=== PATIENT | female | born 1955 | race Caucasian/White ===

== ENCOUNTER 2021-08-17 12:20 | Inpatient (IN) | payer MEDICARE, SELFPAY ==
[2021-08-17] MEDS ORDERED: Acetaminophen 325 MG TAB PO PRN (14:48)
[2021-08-17] MEDS ORDERED: HYDROcodone/Acetaminophen 5/325 mg Tablet PO PRN ×2 (14:48)
[2021-08-17] MEDS ORDERED: Ondansetron ODT 4 MG TAB PO PRN (14:48)
[2021-08-17] MEDS ORDERED: Acetaminophen 650 MG Suppository PR PRN (14:48)
[2021-08-17] MEDS ORDERED: Ketorolac Tromethamine 30 MG/ML VIAL IVP PRN (14:54)
[2021-08-17 15:52] LABS: ALT (SGPT) 3039 U/L (8-55); Albumin 3.6 g/dL (3.4-4.8); Alkaline Phosphatase 157 U/L (40-110); Anion Gap 12 mmol/L (10-20); BUN (Urea Nitrogen) 23 mg/dL (9.8-20.1); Calc. Creatinine Clearance 0 mL/min (70-130); Calcium 8.6 mg/dL (7.8-10.44); Carbon Dioxide 22 mmol/L (23-31); Chloride 110 mmol/L (98-107); Globulin 2.1 g/dL (2.4-3.5); Glucose 98 mg/dL (80-115); Potassium 3.6 mmol/L (3.5-5.1); Protein, Total 5.7 g/dL (5.8-8.1); Sodium 140 mmol/L (136-145)
[2021-08-17] MEDS ORDERED: Morphine 4 MG/ML VIAL SLOW IVP PRN (16:00)
[2021-08-17 16:10] LABS: AST (SGOT) Greater than 3500 U/L (5-34)
[2021-08-17] MEDS ORDERED: Gabapentin 300 MG CAP PO PRN (16:15)
[2021-08-17] MEDS ORDERED: HYDROcodone/Acetaminophen 10/325 mg Tablet PO PRN (16:21)
[2021-08-17] MEDS ORDERED: SUMAtriptan Succinate 6 MG/0.5 ML VIAL SC PRN (16:28)
[2021-08-17] MEDS ORDERED: Ketorolac Tromethamine 30 MG/ML VIAL IVP SCH (16:30)
[2021-08-17] MEDS ORDERED: Bisacodyl 10 MG SUPP PR PRN (16:30)
[2021-08-17] MEDS ORDERED: Bisacodyl 5 MG TAB PO PRN (16:30)
[2021-08-17] MEDS ORDERED: ALPRAZolam 0.25 MG TAB PO PRN (16:35)
[2021-08-17] MEDS: Ondansetron PF 4 MG/2 ML Vial IVP PRN (17:03)
[2021-08-17] MEDS ORDERED: Morphine 4 MG/ML VIAL ONE (17:08)
[2021-08-17 17:22] LABS: Hemoglobin 12.3 g/dL (12.0-16.0); Mean Corpuscular HGB CONC 33.7 g/dL (32.0-36.0); Platelet Count 90 thou/uL (130-400); RBC Distribution Width 11.9 % (11.5-14.5); Red Blood Cell (RBC) Count 3.62 mill/uL (4.20-5.40); White Blood Cell (WBC) Count 0.9 thou/uL (4.8-10.8)
[2021-08-17 17:25] LABS: INR-International Normal Ratio 1.3; Prothrombin Time 16.6 sec (12.0-14.7)
[2021-08-17 17:32] LABS: ALT (SGPT) 3799 U/L (8-55); Acetaminophen Less than 6.0 mcg/mL (10.0-30.0); Albumin 3.6 g/dL (3.4-4.8); Alkaline Phosphatase 165 U/L (40-110); Bilirubin, Direct 0.7 mg/dL (0.1-0.3); Bilirubin, Total 1.1 mg/dL (0.2-1.2)
[2021-08-17 17:40] LABS: AST (SGOT) Greater than 3500 U/L (5-34)
[2021-08-17 17:40] LABS: Band 36 % (5-11); Lymphocytes 16 % (21-51); MDiff Complete? YES; Macrocytosis SLIGHT = 6-15 cells (100X) (0-5/hpf); Mean Platelet Volume 9.2 fL (7.4-10.4); Monocytes 2 % (0-10); Neutrophil 40 % (42-75); Platelet Morphology Comment Appears Decreased; Reactive Lymphocytes 6 % (0-10); Reflex for Review?? YES
[2021-08-17 17:52] LABS: Free T4 (Free Thyroxine) 1.11 ng/dL (0.70-1.48)
[2021-08-17 17:53] LABS: Thyroid Stimulating Hormone 0.0405 uIU/mL (0.35-4.94)
[2021-08-17 18:06] LABS: HBCM Index 0.07 S/CO (0-0.79); HBSAg Index 0.25 S/CO (0-0.99); Hep A IgM AB Non-Reactive (NonReactive); Hep A IgM S/CO 0.08 S/CO (0-0.79); Hep B Surf Ag Non-Reactive S/CO (NonReactive); Hep C IgG Ab Non-Reactive (NonReactive); Hep C Index 0.08 S/CO (0-0.79); Hepatitis B Core IgM Abs Non-Reactive (NonReactive)
[2021-08-17] MEDS ORDERED: Piperacillin/Tazobactam 3.375 GM in Sodium Chloride 0.9% 100 ML IVPB SCH (19:15)
[2021-08-17 19:27] VITALS: BMI 23.6
[2021-08-17] MEDS: buPROPion 75 MG TAB PO SCH (19:56)
[2021-08-17] MEDS: Topiramate 100 MG TAB PO SCH (19:57)
[2021-08-17] MEDS: DULoxetine 30 MG CAP PO SCH (19:57)
[2021-08-17] MEDS: Famotidine/PF 20 mg/2ml Vial SLOW IVP SCH (19:59)
[2021-08-17] MEDS: Verapamil 120 MG TAB PO SCH (19:59)
[2021-08-17] MEDS: Pantoprazole 40 MG VIAL IVP SCH (19:59)
[2021-08-17 20:08] LABS: HIV (1/2) Antibody/Antigen NonReactive (NonReactive); HIV 1/2 INDEX 0.13 S/CO (<1.00)
[2021-08-17] MEDS: Lactated Ringer's 1,000 ML IV SCH (20:09)
[2021-08-17 20:30] LABS: Bacteria/HPF 4+ HPF (None Seen); Bilirubin Negative (Negative); Blood, Urine 2+ (Negative); Clarity Turbid (Clear); Glucose, Urine (Dipstick) Normal (Negative); Ketone, Urine Negative (Negative); Leukocyte Negative Leu/uL (Negative); Nitrite 1+ (Negative); Protein, Urine (Dipstick) 70 mg/dL (Neg-Trace); Specific Gravity, Urine 1.031 (1.002-1.036); Squamous Epithelial 0-3 HPF (0-3); Urobilinogen Normal mg/dL (Less than 2)
[2021-08-17] MEDS ORDERED: Sodium Chloride 0.9% 1,000 ML IV SCH ×3 (21:00→23:45)
[2021-08-17] MEDS ORDERED: Famotidine 20 MG TAB PO SCH (21:00)
[2021-08-17 21:31] LABS: Amphetamine Not Detected (NotDetected); Barbiturates Screen Not Detected (NotDetected); Benzodiazepine Screen Detected (NotDetected); Cocaine Metabolite Screen Not Detected (NotDetected); Methadone Not Detected (NotDetected); Methamphetamine Not Detected (NotDetected); Opiate Screen Detected (NotDetected); Oxycodone Screen Not Detected (NotDetected); Phencyclidine (PCP) Not Detected (NotDetected); THC/Cannabinoid Screen Detected (NotDetected); Tricyclic Screen Not Detected (NotDetected)
[2021-08-17 22:33] LABS: Lactic Acid 3.3 mmol/L (0.5-2.2)
[2021-08-17 22:41] LABS: Chloride 109 mmol/L (98-107); Potassium 3.8 mmol/L (3.5-5.1); Sodium 134 mmol/L (136-145)
[2021-08-17 22:43] LABS: Albumin 3.1 g/dL (3.4-4.8)
[2021-08-17 22:46] LABS: Globulin 1.7 g/dL (2.4-3.5); Glucose 123 mg/dL (80-115); Protein, Total 4.8 g/dL (5.8-8.1)
[2021-08-17 22:47] LABS: Bilirubin, Total 0.8 mg/dL (0.2-1.2); Carbon Dioxide 21 mmol/L (23-31)
[2021-08-17 22:48] LABS: Alkaline Phosphatase 133 U/L (40-110)
[2021-08-17 22:49] LABS: Calc. Creatinine Clearance 34 mL/min (70-130)
[2021-08-17 22:50] LABS: BUN (Urea Nitrogen) 23 mg/dL (9.8-20.1)
[2021-08-17 22:51] LABS: ALT (SGPT) 3726 U/L (8-55)
[2021-08-17] MEDS: Ketorolac Tromethamine 30 MG/ML VIAL IVP SCH (22:52)
[2021-08-17 22:53] LABS: Band 19 % (5-11); Eosinophils 3 % (0-10); Hemoglobin 10.6 g/dL (12.0-16.0); Lymphocytes 12 % (21-51); MDiff Complete? YES; Mean Corpuscular HGB CONC 33.6 g/dL (32.0-36.0); Mean Platelet Volume 9.2 fL (7.4-10.4); Monocytes 3 % (0-10); Neutrophil 63 % (42-75); Platelet Count 82 thou/uL (130-400); Platelet Morphology Comment Appears Decreased; RBC Distribution Width 11.9 % (11.5-14.5); Red Blood Cell (RBC) Count 3.12 mill/uL (4.20-5.40); White Blood Cell (WBC) Count 5.4 thou/uL (4.8-10.8)
[2021-08-17 22:55] LABS: Anion Gap 8 mmol/L (10-20)
[2021-08-17] MEDS: Piperacillin/Tazobactam 3.375 GM in Sodium Chloride 0.9% 100 ML IVPB SCH (22:59)
[2021-08-17 23:01] LABS: AST (SGOT) Greater than 3500 U/L (5-34)
[2021-08-18] MEDS ORDERED: Vancomycin 1.5 GRAM/300 ML BAG 1.5 GM in Premix Bag 1 BAG IVPB SCH (01:14)
[2021-08-18] MEDS ORDERED: Vancomycin HCl 1.25 GM in Sodium Chloride 0.9% 250 ML 250 ML IVPB SCH (01:45)
[2021-08-18] MEDS ORDERED: Norepinephrine 8 MG/0.9% NS 250 ML IVPB SCH (01:45)
[2021-08-18] MEDS: Norepinephrine 8 MG in Dextrose 5% in Water 242 ML IVPB PRN ×2 (02:31→19:14)
[2021-08-18 03:50] LABS: ALT (SGPT) 3253 U/L (8-55); Albumin 2.9 g/dL (3.4-4.8); Alkaline Phosphatase 135 U/L (40-110); Anion Gap 16 mmol/L (10-20); BUN (Urea Nitrogen) 24 mg/dL (9.8-20.1); Bilirubin, Total 1.1 mg/dL (0.2-1.2); Calc. Creatinine Clearance 32 mL/min (70-130); Calcium 7.8 mg/dL (7.8-10.44); Carbon Dioxide 17 mmol/L (23-31); Chloride 110 mmol/L (98-107); Globulin 2.1 g/dL (2.4-3.5); Glucose 95 mg/dL (80-115); Potassium 3.5 mmol/L (3.5-5.1); Sodium 139 mmol/L (136-145)
[2021-08-18 03:53] LABS: AST (SGOT) Greater than 3500 U/L (5-34)
[2021-08-18 04:10] LABS: INR-International Normal Ratio 1.3; PTT 42.4 sec (22.9-36.1); Prothrombin Time 16.4 sec (12.0-14.7)
[2021-08-18 04:38] LABS: Band 27 % (5-11); Eosinophils 2 % (0-10); Hemoglobin 10.5 g/dL (12.0-16.0); Lymphocytes 10 % (21-51); MDiff Complete? YES; Mean Corpuscular HGB CONC 33.5 g/dL (32.0-36.0); Mean Corpuscular Hemoglobin 34.1 pg (27.0-31.0); Mean Platelet Volume 9.6 fL (7.4-10.4); Metamyelocyte 1 % (0-0); Neutrophil 59 % (42-75); Platelet Count 69 thou/uL (130-400); Platelet Morphology Comment Appears Decreased; RBC Distribution Width 12.1 % (11.5-14.5); Red Blood Cell (RBC) Count 3.08 mill/uL (4.20-5.40); White Blood Cell (WBC) Count 7.3 thou/uL (4.8-10.8)
[2021-08-18] MEDS: Lactated Ringer's 1,000 ML IV SCH ×3 (04:46→22:55)
[2021-08-18] MEDS: Ketorolac Tromethamine 30 MG/ML VIAL IVP SCH (04:51)
[2021-08-18 06:32] LABS: Lactic Acid 2.1 mmol/L (0.5-2.2)
[2021-08-18] MEDS ORDERED: Iothalamate Meglumine 60% 50 ML VIAL FS ONE (07:33)
[2021-08-18] MEDS ORDERED: Fentanyl 100 MCG/2 ML VIAL ONE (07:37)
[2021-08-18] MEDS: Piperacillin/Tazobactam 3.375 GM in Sodium Chloride 0.9% 100 ML IVPB SCH ×3 (08:07→23:17)
[2021-08-18] MEDS: Pantoprazole 40 MG VIAL IVP SCH ×2 (08:08→22:37)
[2021-08-18] MEDS: Famotidine/PF 20 mg/2ml Vial SLOW IVP SCH ×2 (08:08→22:34)
[2021-08-18] MEDS ORDERED: Ketamine 50 MG/ML (10ML VIAL) ONE (08:19)
[2021-08-18] MEDS ORDERED: Dexamethasone 20 MG/5 ML VIAL ONE (08:33)
[2021-08-18] MEDS ORDERED: Lidocaine 1% PF 5 ML VIAL ONE (08:33)
[2021-08-18] MEDS ORDERED: Ondansetron PF 4 MG/2 ML Vial ONE (08:33)
[2021-08-18] MEDS ORDERED: Ioversol 68 % 50 ML VIAL ONE (08:51)
[2021-08-18] MEDS ORDERED: Enoxaparin Sodium 40 MG/0.4 ML SYRINGE SC SCH (09:00)
[2021-08-18 10:23] LABS: Bilirubin Negative (Negative); Blood, Urine 3+ (Negative); Clarity Extra Turbid (Clear); Glucose, Urine (Dipstick) Normal (Negative); Ketone, Urine Negative (Negative); Leukocyte 250 Leu/uL (Negative); Nitrite Negative (Negative); Protein, Urine (Dipstick) 100 mg/dL (Neg-Trace); RBC/HPF Greater than 50 HPF (0-3); Squamous Epithelial 0-3 HPF (0-3); Urobilinogen Normal mg/dL (Less than 2)
[2021-08-18 10:24] LABS: Bacteria/HPF 1+ HPF (None Seen); Specific Gravity, Urine 1.057 (1.002-1.036)
[2021-08-18] MEDS: buPROPion 75 MG TAB PO SCH ×2 (11:52→22:35)
[2021-08-18] MEDS: Tamsulosin HCl 0.4 MG CAP PO SCH (11:52)
[2021-08-18] MEDS: Topiramate 100 MG TAB PO SCH ×2 (11:52→22:36)
[2021-08-18] MEDS: DULoxetine 30 MG CAP PO SCH ×3 (11:53→22:37)
[2021-08-18] MEDS: Verapamil 120 MG TAB PO SCH ×2 (11:53→22:34)
[2021-08-18] MEDS: Polyethylene Glycol 3350 17 GM Packet PO SCH (11:53)
[2021-08-18] MEDS: Ondansetron PF 4 MG/2 ML Vial IVP PRN (16:08)
[2021-08-18] MEDS: Morphine 4 MG/ML VIAL SLOW IVP PRN (19:18)
[2021-08-19] MEDS ORDERED: Vancomycin HCl 500 MG in Sodium Chloride 0.9% 100 ML IVPB SCH (02:00)
[2021-08-19] MEDS: Levothyroxine Sodium 100 MCG TAB PO SCH (05:35)
[2021-08-19 06:19] LABS: ALT (SGPT) 2013 U/L (8-55); AST (SGOT) 1060 U/L (5-34); Albumin 2.8 g/dL (3.4-4.8); Alkaline Phosphatase 113 U/L (40-110); Anion Gap 13 mmol/L (10-20); BUN (Urea Nitrogen) 38 mg/dL (9.8-20.1); Bilirubin, Total 1.3 mg/dL (0.2-1.2); Calc. Creatinine Clearance 32 mL/min (70-130); Calcium 7.9 mg/dL (7.8-10.44); Carbon Dioxide 20 mmol/L (23-31); Chloride 110 mmol/L (98-107); Globulin 1.8 g/dL (2.4-3.5); Glucose 97 mg/dL (80-115); Potassium 3.4 mmol/L (3.5-5.1); Protein, Total 4.6 g/dL (5.8-8.1); Sodium 140 mmol/L (136-145)
[2021-08-19] MEDS: Lactated Ringer's 1,000 ML IV SCH ×3 (08:35→20:19)
[2021-08-19] MEDS: Piperacillin/Tazobactam 3.375 GM in Sodium Chloride 0.9% 100 ML IVPB SCH ×2 (08:36→14:50)
[2021-08-19] MEDS: Famotidine/PF 20 mg/2ml Vial SLOW IVP SCH (08:37)
[2021-08-19] MEDS: Topiramate 100 MG TAB PO SCH ×2 (08:37→20:19)
[2021-08-19] MEDS: DULoxetine 30 MG CAP PO SCH (08:37)
[2021-08-19] MEDS: Verapamil 120 MG TAB PO SCH (08:37)
[2021-08-19] MEDS: Atorvastatin Calcium 20 MG TAB PO SCH (08:37)
[2021-08-19] MEDS: Tamsulosin HCl 0.4 MG CAP PO SCH (08:38)
[2021-08-19] MEDS: buPROPion 75 MG TAB PO SCH ×2 (08:38→20:40)
[2021-08-19] MEDS: Pantoprazole 40 MG VIAL IVP SCH (08:38)
[2021-08-19] MEDS: Polyethylene Glycol 3350 17 GM Packet PO SCH (08:39)
[2021-08-19] MEDS ORDERED: Electrolyte Replacement Protocol 1 EACH FS PRN (09:30)
[2021-08-19] MEDS ORDERED: Potassium Chloride 20 MEQ TAB PO SCH (11:00)
[2021-08-19 12:12] LABS: Magnesium 1.6 mg/dL (1.6-2.6); Phosphorus 2.9 mg/dL (2.3-4.7)
[2021-08-19] MEDS ORDERED: Magnesium 2 GM/50 ML 2 GM in Premix Bag 1 BAG IVPB SCH (14:00)
[2021-08-19] MEDS ORDERED: Polyethylene Glycol 3350 17 GM Packet PO PRN (14:24)
[2021-08-19] MEDS ORDERED: Albumin 5% 0 ML ONE (14:45)
[2021-08-19] MEDS: Albumin 25% 25 GM/100 ML BOT IVPB SCH ×2 (15:07→22:32)
[2021-08-19] MEDS: Docusate 100 MG CAP PO SCH (20:20)
[2021-08-19] MEDS ORDERED: SUMAtriptan Succinate 50 MG TAB PO PRN (22:33)
[2021-08-19] MEDS: Morphine 4 MG/ML VIAL SLOW IVP PRN (22:46)
[2021-08-20] MEDS: Piperacillin/Tazobactam 3.375 GM in Sodium Chloride 0.9% 100 ML IVPB SCH (00:27)
[2021-08-20] MEDS: Lactated Ringer's 1,000 ML IV SCH ×3 (03:00→22:15)
[2021-08-20 05:42] LABS: Hemoglobin 9.3 g/dL (12.0-16.0); Mean Corpuscular HGB CONC 32.9 g/dL (32.0-36.0); Mean Corpuscular Hemoglobin 33.1 pg (27.0-31.0); Mean Platelet Volume 10.8 fL (7.4-10.4); Platelet Count 58 thou/uL (130-400); RBC Distribution Width 12.4 % (11.5-14.5); Red Blood Cell (RBC) Count 2.81 mill/uL (4.20-5.40); White Blood Cell (WBC) Count 16.7 thou/uL (4.8-10.8)
[2021-08-20 05:55] LABS: ALT (SGPT) 1025 U/L (8-55); AST (SGOT) 209 U/L (5-34); Alkaline Phosphatase 118 U/L (40-110); Anion Gap 11 mmol/L (10-20); BUN (Urea Nitrogen) 36 mg/dL (9.8-20.1); Bilirubin, Total 0.8 mg/dL (0.2-1.2); Calc. Creatinine Clearance 34 mL/min (70-130); Calcium 8.3 mg/dL (7.8-10.44); Carbon Dioxide 22 mmol/L (23-31); Chloride 114 mmol/L (98-107); Globulin 1.6 g/dL (2.4-3.5); Glucose 75 mg/dL (80-115); Magnesium 2.2 mg/dL (1.6-2.6); Potassium 3.5 mmol/L (3.5-5.1); Protein, Total 4.6 g/dL (5.8-8.1); Sodium 143 mmol/L (136-145)
[2021-08-20 06:04] LABS: Phosphorus 1.8 mg/dL (2.3-4.7)
[2021-08-20 06:09] LABS: Band 25 % (5-11); Eosinophils 2 % (0-10); Lymphocytes 12 % (21-51); MDiff Complete? YES; Neutrophil 61 % (42-75); Platelet Morphology Comment Appears Decreased
[2021-08-20] MEDS: Levothyroxine Sodium 100 MCG TAB PO SCH (06:30)
[2021-08-20] MEDS: Albumin 25% 25 GM/100 ML BOT IVPB SCH ×2 (06:30→14:34)
[2021-08-20] MEDS: PHOS-NAK 1 PKT PACK PO SCH ×2 (06:30→11:43)
[2021-08-20] MEDS ORDERED: Lactated Ringer's 1,000 ML IV SCH (06:38)
[2021-08-20] MEDS ORDERED: Potassium Chloride 20 MEQ TAB PO SCH (07:00)
[2021-08-20 07:15] LABS: CMV IgG AB Greater than 10.00 U/mL (0.00-0.59)
[2021-08-20] MEDS: Ondansetron PF 4 MG/2 ML Vial IVP PRN ×3 (07:47→23:30)
[2021-08-20] MEDS: DULoxetine 30 MG CAP PO SCH (08:49)
[2021-08-20] MEDS: Docusate 100 MG CAP PO SCH ×2 (08:49→20:04)
[2021-08-20] MEDS: buPROPion 75 MG TAB PO SCH ×2 (08:49→20:04)
[2021-08-20] MEDS: Saccharomyces boulardii 250 MG CAP PO SCH (08:49)
[2021-08-20] MEDS: Topiramate 100 MG TAB PO SCH ×2 (08:49→20:05)
[2021-08-20] MEDS: Atorvastatin Calcium 20 MG TAB PO SCH (08:49)
[2021-08-20 12:39] LABS: Varicella Zoster IgM ABS Less than 0.91 index (0.00-0.90)
[2021-08-20] MEDS: Sodium Chloride 0.65% Nasal 44 ML BOT EA NARE SCH ×3 (13:08→20:05)
[2021-08-20 15:12] LABS: Varicella Zoster IgG ABS 2284 index (Immune >165)
[2021-08-20] MEDS: Senokot S 8.6-50 MG TAB PO SCH (22:14)
[2021-08-21] MEDS: Levothyroxine Sodium 100 MCG TAB PO SCH (05:42)
[2021-08-21 08:04] LABS: ALT (SGPT) 602 U/L (8-55); AST (SGOT) 63 U/L (5-34); Albumin 3.1 g/dL (3.4-4.8); Alkaline Phosphatase 197 U/L (40-110); Anion Gap 12 mmol/L (10-20); BUN (Urea Nitrogen) 26 mg/dL (9.8-20.1); Bilirubin, Total 1.2 mg/dL (0.2-1.2); Calc. Creatinine Clearance 44 mL/min (70-130); Calcium 8.6 mg/dL (7.8-10.44); Carbon Dioxide 22 mmol/L (23-31); Chloride 113 mmol/L (98-107); Globulin 1.5 g/dL (2.4-3.5); Glucose 85 mg/dL (80-115); Magnesium 1.7 mg/dL (1.6-2.6); Potassium 3.6 mmol/L (3.5-5.1); Protein, Total 4.6 g/dL (5.8-8.1); Sodium 143 mmol/L (136-145)
[2021-08-21 08:06] LABS: Phosphorus 3.1 mg/dL (2.3-4.7)
[2021-08-21 08:12] LABS: Hemoglobin 9.8 g/dL (12.0-16.0); Mean Corpuscular HGB CONC 33.8 g/dL (32.0-36.0); Mean Corpuscular Hemoglobin 33.5 pg (27.0-31.0); Mean Corpuscular Volume 98.9 fL (78.0-98.0); Mean Platelet Volume 11.7 fL (7.4-10.4); Platelet Count 70 thou/uL (130-400); RBC Distribution Width 12.5 % (11.5-14.5); Red Blood Cell (RBC) Count 2.93 mill/uL (4.20-5.40); White Blood Cell (WBC) Count 13.1 thou/uL (4.8-10.8)
[2021-08-21 08:15] LABS: INR-International Normal Ratio 1.2; PTT 33.3 sec (22.9-36.1); Prothrombin Time 14.8 sec (12.0-14.7)
[2021-08-21] MEDS ORDERED: Magnesium 2 GM/50 ML 2 GM in Premix Bag 1 BAG IVPB SCH (08:15)
[2021-08-21] MEDS: Senokot S 8.6-50 MG TAB PO SCH ×2 (08:53→20:24)
[2021-08-21] MEDS: DULoxetine 30 MG CAP PO SCH (08:53)
[2021-08-21] MEDS: Atorvastatin Calcium 20 MG TAB PO SCH (08:53)
[2021-08-21] MEDS: Topiramate 100 MG TAB PO SCH ×2 (08:54→20:24)
[2021-08-21] MEDS: buPROPion 75 MG TAB PO SCH ×2 (08:54→20:23)
[2021-08-21] MEDS: Saccharomyces boulardii 250 MG CAP PO SCH (08:54)
[2021-08-21] MEDS: Sodium Chloride 0.65% Nasal 44 ML BOT EA NARE SCH ×4 (08:55→20:08)
[2021-08-21 09:14] LABS: Band 9 % (5-11); Lymphocytes 17 % (21-51); MDiff Complete? YES; Monocytes 5 % (0-10); Neutrophil 69 % (42-75); Platelet Morphology Comment Appears Decreased; Polychromasia SLIGHT = 2-3 cells (100X) (0-2/hpf)
[2021-08-21] MEDS: Ondansetron PF 4 MG/2 ML Vial IVP PRN ×2 (10:58→18:07)
[2021-08-21] MEDS ORDERED: Morphine 4 MG/ML VIAL SLOW IVP PRN (11:05)
[2021-08-21] MEDS ORDERED: Bisacodyl 10 MG SUPP PR SCH (11:15)
[2021-08-21] MEDS ORDERED: buPROPion 75 MG TAB PO SCH (11:15)
[2021-08-21] MEDS ORDERED: Senokot S 8.6-50 MG TAB PO SCH (11:15)
[2021-08-21] MEDS ORDERED: Pantoprazole 40 MG VIAL IVP SCH (12:45)
[2021-08-21] MEDS ORDERED: Milk Of Magnesia 30 ML UDCUP PO PRN (13:59)
[2021-08-21] MEDS: Sodium Bicarbonate 150 MEQ in Dextrose 5% in Water 1,000 ML IV SCH (14:06)
[2021-08-21] MEDS: Polyethylene Glycol 3350 17 GM Packet PO SCH (20:23)
[2021-08-22] MEDS: Sodium Bicarbonate 150 MEQ in Dextrose 5% in Water 1,000 ML IV SCH ×2 (03:37→09:50)
[2021-08-22] MEDS: Levothyroxine Sodium 100 MCG TAB PO SCH (05:00)
[2021-08-22] MEDS: Ondansetron PF 4 MG/2 ML Vial IVP PRN ×3 (05:04→20:22)
[2021-08-22 06:22] LABS: ALT (SGPT) 404 U/L (8-55); AST (SGOT) 35 U/L (5-34); Albumin 2.8 g/dL (3.4-4.8); Alkaline Phosphatase 199 U/L (40-110); Anion Gap 13 mmol/L (10-20); BUN (Urea Nitrogen) 15 mg/dL (9.8-20.1); Calc. Creatinine Clearance 53 mL/min (70-130); Calcium 8.3 mg/dL (7.8-10.44); Carbon Dioxide 22 mmol/L (23-31); Chloride 109 mmol/L (98-107); Globulin 1.6 g/dL (2.4-3.5); Glucose 111 mg/dL (80-115); Magnesium 1.7 mg/dL (1.6-2.6); Potassium 3.1 mmol/L (3.5-5.1); Protein, Total 4.4 g/dL (5.8-8.1); Sodium 141 mmol/L (136-145)
[2021-08-22 06:37] LABS: Mean Corpuscular HGB CONC 33.3 g/dL (32.0-36.0); Mean Corpuscular Hemoglobin 33.1 pg (27.0-31.0); Mean Corpuscular Volume 99.3 fL (78.0-98.0); Platelet Count 83 thou/uL (130-400); RBC Distribution Width 12.5 % (11.5-14.5); Red Blood Cell (RBC) Count 3.02 mill/uL (4.20-5.40); White Blood Cell (WBC) Count 10.8 thou/uL (4.8-10.8)
[2021-08-22] MEDS ORDERED: Magnesium 2 GM/50 ML 2 GM in Premix Bag 1 BAG IVPB SCH (07:00)
[2021-08-22] MEDS ORDERED: Potassium Chloride 20 MEQ TAB PO SCH (07:00)
[2021-08-22 08:09] LABS: Band 8 % (5-11); Eosinophils 2 % (0-10); Lymphocytes 22 % (21-51); MDiff Complete? YES; Monocytes 17 % (0-10); Neutrophil 50 % (42-75); Nucleated RBC 1 % (0); Platelet Morphology Comment Appears Decreased; Polychromasia SLIGHT = 2-3 cells (100X) (0-2/hpf)
[2021-08-22] MEDS: Senokot S 8.6-50 MG TAB PO SCH ×2 (08:28→21:56)
[2021-08-22] MEDS: Topiramate 100 MG TAB PO SCH ×2 (08:29→21:56)
[2021-08-22] MEDS: DULoxetine 30 MG CAP PO SCH (08:29)
[2021-08-22] MEDS: buPROPion 75 MG TAB PO SCH ×2 (08:29→21:55)
[2021-08-22] MEDS: Saccharomyces boulardii 250 MG CAP PO SCH (08:30)
[2021-08-22] MEDS: Sodium Chloride 0.65% Nasal 44 ML BOT EA NARE SCH ×4 (08:31→21:56)
[2021-08-22] MEDS: Pantoprazole 40 MG VIAL IVP SCH (08:31)
[2021-08-22] MEDS ORDERED: Bisacodyl 10 MG SUPP PR SCH (09:00)
[2021-08-22 11:16] LABS: HSV 1 - DNA Negative (Negative); HSV 2 - DNA Negative (Negative)
[2021-08-22] MEDS: Polyethylene Glycol 3350 17 GM Packet PO SCH (21:56)
[2021-08-23] MEDS: Sodium Bicarbonate 150 MEQ in Dextrose 5% in Water 1,000 ML IV SCH (05:23)
[2021-08-23] MEDS: Levothyroxine Sodium 100 MCG TAB PO SCH (05:23)
[2021-08-23 06:55] LABS: Hemoglobin 10.9 g/dL (12.0-16.0); Mean Corpuscular HGB CONC 34.2 g/dL (32.0-36.0); Mean Corpuscular Hemoglobin 33.7 pg (27.0-31.0); Mean Corpuscular Volume 98.5 fL (78.0-98.0); Mean Platelet Volume 11.4 fL (7.4-10.4); Platelet Count 104 thou/uL (130-400); RBC Distribution Width 12.5 % (11.5-14.5); Red Blood Cell (RBC) Count 3.23 mill/uL (4.20-5.40); White Blood Cell (WBC) Count 12.6 thou/uL (4.8-10.8)
[2021-08-23 07:07] LABS: ALT (SGPT) 302 U/L (8-55); AST (SGOT) 26 U/L (5-34); Albumin 2.9 g/dL (3.4-4.8); Alkaline Phosphatase 167 U/L (40-110); Anion Gap 12 mmol/L (10-20); BUN (Urea Nitrogen) 12 mg/dL (9.8-20.1); Calc. Creatinine Clearance 53 mL/min (70-130); Calcium 8.3 mg/dL (7.8-10.44); Carbon Dioxide 24 mmol/L (23-31); Chloride 110 mmol/L (98-107); Globulin 1.7 g/dL (2.4-3.5); Glucose 98 mg/dL (80-115); Magnesium 1.7 mg/dL (1.6-2.6); Potassium 3.5 mmol/L (3.5-5.1); Protein, Total 4.6 g/dL (5.8-8.1); Sodium 142 mmol/L (136-145)
[2021-08-23 07:41] LABS: Band 9 % (5-11); Eosinophils 2 % (0-10); Hypochromia SLIGHT = 6-15 cells (100X) (0-5/hpf); Lymphocytes 18 % (21-51); MDiff Complete? YES; Metamyelocyte 3 % (0-0); Monocytes 5 % (0-10); Myelocyte 2 % (0-0); Neutrophil 53 % (42-75); Ovalocytes SLIGHT = 2-5 cells (100X) (0-1/hpf); Platelet Morphology Comment Appears Decreased; Polychromasia SLIGHT = 2-3 cells (100X) (0-2/hpf); Reactive Lymphocytes 8 % (0-10)
[2021-08-23] MEDS ORDERED: Magnesium 2 GM/50 ML 2 GM in Premix Bag 1 BAG IVPB SCH (08:00)
[2021-08-23] MEDS: Sodium Chloride 0.65% Nasal 44 ML BOT EA NARE SCH ×4 (08:00→19:59)
[2021-08-23] MEDS: Topiramate 100 MG TAB PO SCH ×2 (08:09→19:58)
[2021-08-23] MEDS: DULoxetine 30 MG CAP PO SCH (08:09)
[2021-08-23] MEDS: Potassium Chloride 20 MEQ TAB PO SCH ×2 (08:09→08:10)
[2021-08-23] MEDS: buPROPion 75 MG TAB PO SCH ×2 (08:09→19:59)
[2021-08-23] MEDS: Senokot S 8.6-50 MG TAB PO SCH ×2 (08:09→19:58)
[2021-08-23] MEDS: Saccharomyces boulardii 250 MG CAP PO SCH (08:09)
[2021-08-23] MEDS: Bisacodyl 10 MG SUPP PR SCH (08:10)
[2021-08-23] MEDS: Pantoprazole 40 MG VIAL IVP SCH (08:20)
[2021-08-23] MEDS: Ondansetron PF 4 MG/2 ML Vial IVP PRN ×2 (08:23→20:57)
[2021-08-23] MEDS ORDERED: Polyethylene Glycol 3350 17 GM Packet PO PRN (09:49)
[2021-08-23] MEDS: cefTRIAXone\\ROCEPHIN 2 GM in Sodium Chloride 0.9% 100 ML IVPB SCH (12:11)
[2021-08-23] MEDS: 1/2 NS w/KCL 20 mEq 1,000 ML IV SCH (12:11)
[2021-08-23] MEDS ORDERED: Mag-Al 1200 mg/1200 mg/30 ML UDCUP PO PRN (19:03)
[2021-08-23] MEDS: Polyethylene Glycol 3350 17 GM Packet PO SCH (19:59)
[2021-08-23] MEDS ORDERED: Enoxaparin Sodium 30 MG/0.3 ML SYRINGE SC SCH (21:00)
[2021-08-24] MEDS: Levothyroxine Sodium 100 MCG TAB PO SCH (05:34)
[2021-08-24] MEDS: 1/2 NS w/KCL 20 mEq 1,000 ML IV SCH (05:34)
[2021-08-24 06:20] LABS: ALT (SGPT) 235 U/L (8-55); AST (SGOT) 21 U/L (5-34); Alkaline Phosphatase 148 U/L (40-110); Anion Gap 11 mmol/L (10-20); BUN (Urea Nitrogen) 11 mg/dL (9.8-20.1); Bilirubin, Total 0.8 mg/dL (0.2-1.2); Calc. Creatinine Clearance 52 mL/min (70-130); Calcium 8.3 mg/dL (7.8-10.44); Carbon Dioxide 22 mmol/L (23-31); Chloride 111 mmol/L (98-107); Globulin 1.7 g/dL (2.4-3.5); Glucose 77 mg/dL (80-115); Phosphorus 3.4 mg/dL (2.3-4.7); Potassium 3.9 mmol/L (3.5-5.1); Protein, Total 4.7 g/dL (5.8-8.1); Sodium 140 mmol/L (136-145)
[2021-08-24 06:29] LABS: Band 3 % (5-11); Hemoglobin 10.4 g/dL (12.0-16.0); Lymphocytes 28 % (21-51); MDiff Complete? YES; Mean Corpuscular HGB CONC 33.6 g/dL (32.0-36.0); Mean Corpuscular Hemoglobin 33.6 pg (27.0-31.0); Monocytes 10 % (0-10); Neutrophil 58 % (42-75); Platelet Count 113 thou/uL (130-400); Platelet Morphology Comment Appears Adequate; RBC Distribution Width 12.6 % (11.5-14.5); Red Blood Cell (RBC) Count 3.09 mill/uL (4.20-5.40); White Blood Cell (WBC) Count 13.7 thou/uL (4.8-10.8)
[2021-08-24] MEDS: Saccharomyces boulardii 250 MG CAP PO SCH (08:51)
[2021-08-24] MEDS: Senokot S 8.6-50 MG TAB PO SCH ×2 (08:51→20:47)
[2021-08-24] MEDS: Pantoprazole 40 MG VIAL IVP SCH (08:51)
[2021-08-24] MEDS: Topiramate 100 MG TAB PO SCH ×2 (08:51→20:47)
[2021-08-24] MEDS: DULoxetine 30 MG CAP PO SCH (08:51)
[2021-08-24] MEDS: Bisacodyl 10 MG SUPP PR SCH (08:51)
[2021-08-24] MEDS: buPROPion 75 MG TAB PO SCH ×2 (08:51→20:47)
[2021-08-24] MEDS: Sodium Chloride 0.65% Nasal 44 ML BOT EA NARE SCH ×3 (08:52→17:08)
[2021-08-24] MEDS ORDERED: diphenhydrAMINE 12.5 MG/5 ML UDCUP PO PRN (11:20)
[2021-08-24] MEDS: cefTRIAXone\\ROCEPHIN 2 GM in Sodium Chloride 0.9% 100 ML IVPB SCH (12:26)
[2021-08-24] MEDS: Polyethylene Glycol 3350 17 GM Packet PO SCH ×2 (20:47)
[2021-08-24] MEDS ORDERED: Enoxaparin Sodium 40 MG/0.4 ML SYRINGE SC SCH (21:00)
[2021-08-25] MEDS: Sodium Chloride 0.65% Nasal 44 ML BOT EA NARE SCH ×5 (03:23→21:27)
[2021-08-25] MEDS: Levothyroxine Sodium 100 MCG TAB PO SCH (07:24)
[2021-08-25] MEDS: Topiramate 100 MG TAB PO SCH ×2 (08:16→21:27)
[2021-08-25] MEDS: Pantoprazole 40 MG VIAL IVP SCH (08:17)
[2021-08-25] MEDS: DULoxetine 30 MG CAP PO SCH (08:17)
[2021-08-25] MEDS: buPROPion 75 MG TAB PO SCH ×2 (08:17→21:27)
[2021-08-25] MEDS: Senokot S 8.6-50 MG TAB PO SCH ×2 (08:17→21:27)
[2021-08-25] MEDS: Saccharomyces boulardii 250 MG CAP PO SCH (08:17)
[2021-08-25] MEDS: Bisacodyl 10 MG SUPP PR SCH (08:17)
[2021-08-25] MEDS: cefTRIAXone\\ROCEPHIN 2 GM in Sodium Chloride 0.9% 100 ML IVPB SCH (12:23)
[2021-08-25 16:52] LABS: SARS-CoV-2 PCR by NAA Not Detected (NotDetected)
[2021-08-25] MEDS: Polyethylene Glycol 3350 17 GM Packet PO SCH (21:27)
[2021-08-26] MEDS: Levothyroxine Sodium 100 MCG TAB PO SCH (05:03)
[2021-08-26 07:03] LABS: #Basophils 0.1 thou/uL (0.0-0.2); #Eosinphils 0.2 thou/uL (0.0-0.7); #Lymphocytes 2.3 thou/uL (1.20-3.40); #Monocytes 0.9 thou/uL (0.11-0.59); #Neutrophils 7.2 thou/uL (1.40-6.50); %Basophils 1.2 % (0.0-1.0); %Eosinophils 1.5 % (0.0-10.0); %Lymphocytes 21.9 % (21.0-51.0); %Monocytes 8.5 % (0.0-10.0); Hemoglobin 10.7 g/dL (12.0-16.0); Mean Corpuscular Hemoglobin 34.8 pg (27.0-31.0); Mean Corpuscular Volume 99.4 fL (78.0-98.0); Mean Platelet Volume 10.7 fL (7.4-10.4); Platelet Count 174 thou/uL (130-400); RBC Distribution Width 12.7 % (11.5-14.5); Red Blood Cell (RBC) Count 3.09 mill/uL (4.20-5.40); White Blood Cell (WBC) Count 10.7 thou/uL (4.8-10.8)
[2021-08-26 07:27] LABS: ALT (SGPT) 181 U/L (8-55); AST (SGOT) 30 U/L (5-34); Albumin 3.5 g/dL (3.4-4.8); Alkaline Phosphatase 134 U/L (40-110); Anion Gap 12 mmol/L (10-20); BUN (Urea Nitrogen) 11 mg/dL (9.8-20.1); Bilirubin, Total 0.7 mg/dL (0.2-1.2); Calc. Creatinine Clearance 56 mL/min (70-130); Calcium 8.7 mg/dL (7.8-10.44); Carbon Dioxide 23 mmol/L (23-31); Chloride 109 mmol/L (98-107); Globulin 2.3 g/dL (2.4-3.5); Glucose 76 mg/dL (80-115); Potassium 3.1 mmol/L (3.5-5.1); Protein, Total 5.8 g/dL (5.8-8.1); Sodium 141 mmol/L (136-145)
[2021-08-26] MEDS: buPROPion 75 MG TAB PO SCH ×2 (08:15→21:14)
[2021-08-26] MEDS: Bisacodyl 10 MG SUPP PR SCH (08:15)
[2021-08-26] MEDS: Senokot S 8.6-50 MG TAB PO SCH ×2 (08:15→21:14)
[2021-08-26] MEDS: Topiramate 100 MG TAB PO SCH ×2 (08:15→21:15)
[2021-08-26] MEDS: Saccharomyces boulardii 250 MG CAP PO SCH (08:15)
[2021-08-26] MEDS: DULoxetine 30 MG CAP PO SCH (08:15)
[2021-08-26] MEDS: Sodium Chloride 0.65% Nasal 44 ML BOT EA NARE SCH ×4 (08:15→22:13)
[2021-08-26] MEDS: Potassium Chloride 20 MEQ TAB PO SCH ×3 (08:31→21:14)
[2021-08-26] MEDS: cefTRIAXone\\ROCEPHIN 2 GM in Sodium Chloride 0.9% 100 ML IVPB SCH (11:55)
[2021-08-26] MEDS: traMADol HCl 50 MG TAB PO PRN ×2 (15:52→23:15)
[2021-08-26] MEDS: Polyethylene Glycol 3350 17 GM Packet PO SCH (21:20)
[2021-08-27] MEDS: Levothyroxine Sodium 100 MCG TAB PO SCH (07:49)
[2021-08-27] MEDS: DULoxetine 30 MG CAP PO SCH (08:12)
[2021-08-27] MEDS: buPROPion 75 MG TAB PO SCH (08:12)
[2021-08-27] MEDS: Topiramate 100 MG TAB PO SCH (08:12)
[2021-08-27] MEDS: Bisacodyl 10 MG SUPP PR SCH (08:13)
[2021-08-27] MEDS: Saccharomyces boulardii 250 MG CAP PO SCH (08:13)
[2021-08-27] MEDS: Sodium Chloride 0.65% Nasal 44 ML BOT EA NARE SCH ×2 (08:17→14:10)
[2021-08-27] MEDS: Senokot S 8.6-50 MG TAB PO SCH (08:17)
[2021-08-27 08:58] VITALS: BP 142/88; TEMP 98.8
[2021-08-27 09:05] LABS: #Basophils 0.1 thou/uL (0.0-0.2); #Eosinphils 0.1 thou/uL (0.0-0.7); #Lymphocytes 1.8 thou/uL (1.20-3.40); #Monocytes 0.4 thou/uL (0.11-0.59); #Neutrophils 4.1 thou/uL (1.40-6.50); %Basophils 1.7 % (0.0-1.0); %Eosinophils 2.2 % (0.0-10.0); %Monocytes 6.5 % (0.0-10.0); %Neutrophils 61.6 % (42.0-75.0); Hemoglobin 10.7 g/dL (12.0-16.0); Mean Corpuscular HGB CONC 33.1 g/dL (32.0-36.0); Mean Corpuscular Hemoglobin 33.4 pg (27.0-31.0); Mean Platelet Volume 10.4 fL (7.4-10.4); Platelet Count 201 thou/uL (130-400); RBC Distribution Width 12.7 % (11.5-14.5); Red Blood Cell (RBC) Count 3.22 mill/uL (4.20-5.40); White Blood Cell (WBC) Count 6.6 thou/uL (4.8-10.8)
[2021-08-27 09:13] LABS: ALT (SGPT) 146 U/L (8-55); AST (SGOT) 29 U/L (5-34); Albumin 3.5 g/dL (3.4-4.8); Alkaline Phosphatase 133 U/L (40-110); Anion Gap 11 mmol/L (10-20); BUN (Urea Nitrogen) 10 mg/dL (9.8-20.1); Bilirubin, Total 0.6 mg/dL (0.2-1.2); Calc. Creatinine Clearance 55 mL/min (70-130); Carbon Dioxide 22 mmol/L (23-31); Chloride 110 mmol/L (98-107); Globulin 2.4 g/dL (2.4-3.5); Glucose 96 mg/dL (80-115); Potassium 4.1 mmol/L (3.5-5.1); Protein, Total 5.9 g/dL (5.8-8.1); Sodium 139 mmol/L (136-145)
[2021-08-27] MEDS: cefTRIAXone\\ROCEPHIN 2 GM in Sodium Chloride 0.9% 100 ML IVPB SCH (11:47)
== END 2021-08-27 14:28 | disposition home or self-care (01) | DRG 853 ==
LOC: SURG B 14:18 → CCU 08-18 02:16 → T4-A 08-19 18:56
PROVIDERS: ADMIT Family Medicine; ATTEND Internal Medicine
PROC: 0T778DZ Dilation of Left Ureter with Intraluminal Device, Via Natural or Artificial Opening Endoscopic (ICD-10-PCS; principal; 2021-08-18)
PROC: BT1F1ZZ Fluoroscopy of Left Kidney, Ureter and Bladder using Low Osmolar Contrast (ICD-10-PCS; 2021-08-18)
PROC: 3E043XZ Introduction of Vasopressor into Central Vein, Percutaneous Approach (ICD-10-PCS; 2021-08-18)
PROC: 02HV33Z Insertion of Infusion Device into Superior Vena Cava, Percutaneous Approach (ICD-10-PCS; 2021-08-18)
PROC: 3E0G76Z Introduction of Nutritional Substance into Upper GI, Via Natural or Artificial Opening (ICD-10-PCS; 2021-08-19)
PROC: 02HV33Z Insertion of Infusion Device into Superior Vena Cava, Percutaneous Approach (ICD-10-PCS; 2021-08-26)
PROC: B5181ZA Fluoroscopy of Superior Vena Cava using Low Osmolar Contrast, Guidance (ICD-10-PCS; 2021-08-26)
PROC: B548ZZA Ultrasonography of Superior Vena Cava, Guidance (ICD-10-PCS; 2021-08-26)
DX: A41.51 Sepsis due to Escherichia coli [E. coli] (principal); R65.21 Severe sepsis with septic shock; K72.00 Acute and subacute hepatic failure without coma; N30.00 Acute cystitis without hematuria; N13.6 Pyonephrosis; D68.8 Other specified coagulation defects; N17.9 Acute kidney failure, unspecified; Z20.822 Contact with and (suspected) exposure to COVID-19; E03.9 Hypothyroidism, unspecified; M79.7 Fibromyalgia; E78.5 Hyperlipidemia, unspecified; G44.009 Cluster headache syndrome, unspecified, not intractable; N18.30 Chronic kidney disease, stage 3 unspecified; D69.59 Other secondary thrombocytopenia; K76.89 Other specified diseases of liver; I12.9 Hypertensive chronic kidney disease with stage 1 through stage 4 chronic kidney disease, or unspecified chronic kidney disease; F39 Unspecified mood [affective] disorder; K21.9 Gastro-esophageal reflux disease without esophagitis; K59.09 Other constipation; E83.42 Hypomagnesemia; E87.6 Hypokalemia; E83.39 Other disorders of phosphorus metabolism; R11.2 Nausea with vomiting, unspecified; T40.2X5A Adverse effect of other opioids, initial encounter; Z87.11 Personal history of peptic ulcer disease; Z90.49 Acquired absence of other specified parts of digestive tract; Z88.6 Allergy status to analgesic agent; Z88.8 Allergy status to other drugs, medicaments and biological substances; Z79.899 Other long term (current) drug therapy; Z88.5 Allergy status to narcotic agent; Z79.890 Hormone replacement therapy
CPT/HCPCS: 36415; 36569; 71045; 74018; 74420; 76705; 76770; 80053; 80074; 80143; 80306; 81001; 82607; 82746; 83605; 83735; 84100; 84439; 84443; 85007; 85025; 85027; 85060; 85610; 85730; 86644; 86645; 86787; 87040; 87077; 87086; 87149; 87186; 87389; 87529; 87798; 93005; 93010; 80307; C1751; C2617; C9113; J0696; J0744; J1100; J1885; J1956; J2270; J2405; J2543; J3010; J3030; J3370; J3475; J3480; J3490; J7050; J7070; J7120; P9047; Q0163; Q9961-U8; Q9967; S0028; U0003; U0005

== ENCOUNTER 2021-10-08 14:29 | Outpatient (CLI) | payer MEDICARE | END 2021-10-08 14:30 | disposition home or self-care (01) | LOC: BICCT 14:29 | PROVIDERS: ATTEND Psychiatry & Neurology Neurology | DX: G43.709 Chronic migraine without aura, not intractable, without status migrainosus (principal) | CPT/HCPCS: 70450 ==

== ENCOUNTER 2021-11-15 12:48 | Outpatient (CLI) | payer MEDICARE | END 2021-11-15 12:49 | disposition home or self-care (01) | LOC: BICMAMMO 12:48 | PROVIDERS: ATTEND Student in an Organized Health Care Education/Training Program | DX: Z12.31 Encounter for screening mammogram for malignant neoplasm of breast (principal); Z13.820 Encounter for screening for osteoporosis; Z78.0 Asymptomatic menopausal state; M81.0 Age-related osteoporosis without current pathological fracture; M85.851 Other specified disorders of bone density and structure, right thigh; M85.852 Other specified disorders of bone density and structure, left thigh | CPT/HCPCS: 77063; 77067; 77080 ==

== ENCOUNTER 2022-07-30 19:30 | Outpatient (CLI) | payer MEDICARE | END 2022-07-30 19:31 | disposition home or self-care (01) | LOC: SLEEPLAB 19:30 | PROVIDERS: ATTEND Student in an Organized Health Care Education/Training Program | DX: G47.9 Sleep disorder, unspecified (principal); R53.83 Other fatigue; F32.9 Major depressive disorder, single episode, unspecified; G47.00 Insomnia, unspecified; F41.9 Anxiety disorder, unspecified; R06.83 Snoring; G47.10 Hypersomnia, unspecified; J30.9 Allergic rhinitis, unspecified | CPT/HCPCS: 95810 ==

== ENCOUNTER 2023-07-13 14:38 | Emergency (ER) | payer MEDICARE ==
[2023-07-13] MEDS ORDERED: HYDROcodone/Acetaminophen 10/325 mg Tablet ONE (15:56)
== END 2023-07-13 17:15 | disposition home or self-care (01) ==
LOC: ERS 14:38
DX: S82.001A Unspecified fracture of right patella, initial encounter for closed fracture (principal); W19.XXXA Unspecified fall, initial encounter

== ENCOUNTER 2023-09-08 15:24 | Outpatient (CLI) | payer MEDICARE | END 2023-09-08 15:25 | disposition home or self-care (01) | LOC: BICMAMMO 15:24 | PROVIDERS: ATTEND Student in an Organized Health Care Education/Training Program | DX: Z12.31 Encounter for screening mammogram for malignant neoplasm of breast (principal) | CPT/HCPCS: 77063; 77067 ==

== ENCOUNTER 2024-08-31 12:59 | Outpatient (CLI) | payer MEDICARE | END 2024-08-31 13:00 | disposition home or self-care (01) | LOC: MRI 12:59 | DX: M54.50 Low back pain, unspecified (principal); M47.816 Spondylosis without myelopathy or radiculopathy, lumbar region | CPT/HCPCS: 72148 ==

== ENCOUNTER 2024-09-09 13:20 | Outpatient (CLI) | payer MEDICARE | END 2024-09-09 13:21 | disposition home or self-care (01) | LOC: BICMAMMO 13:20 | PROVIDERS: ATTEND Family Medicine | DX: Z12.31 Encounter for screening mammogram for malignant neoplasm of breast (principal); M81.0 Age-related osteoporosis without current pathological fracture; M85.851 Other specified disorders of bone density and structure, right thigh; M85.852 Other specified disorders of bone density and structure, left thigh; Z80.3 Family history of malignant neoplasm of breast | CPT/HCPCS: 77063; 77067; 77080 ==